=== PATIENT | male | born 1985 | race Caucasian/White ===

== ENCOUNTER 2023-08-31 09:22 | Outpatient (CLI) | payer OTHER ==
--- NOTE | 2023-08-31 10:52 | XRAY Report ---
PROCEDURE: Finger(s) RT INDICATIONS: PAIN IN RIGHT FINGER TECHNIQUE: AP hand, 2 views of the fifth finger(s) acquired. COMPARISON: None. FINDINGS: Bones: Mildly displaced fracture of the fifth distal tuft. Joint alignment appears maintained. Possi ble old deformity of the fifth metacarpal. Soft tissues: There is a small linear hyperdensity in the volar soft tissues adjacent to the distal tuft. IMPRESSION: Mildly displaced distal tuft fracture. Small linear, likely foreign dense body in the volar soft tiss ues. Reviewed by: Ramon Estrada MD on 08/31/2023 10:51 AM PDT Approved by: Ramon Estrada MD on 08/31/2023 10:51 AM PDT Station ID: [id number]
== END 2023-08-31 09:23 | disposition home or self-care (01) ==
LOC: DI 09:22
PROVIDERS: ATTEND Orthopaedic Surgery
DX: S62.396A Other fracture of fifth metacarpal bone, right hand, initial encounter for closed fracture (principal)